=== PATIENT | female | born 1950 | race Caucasian/White ===

== ENCOUNTER 2017-10-14 00:07 | Inpatient (IN) ==
[2017-10-14] MEDS ORDERED: ACETAMINOPHEN 325 MG TABLET PO PRN (03:12)
[2017-10-14] MEDS ORDERED: MORPHINE 2 MG/1 ML SYRINGE IV PRN (03:12)
[2017-10-14] MEDS ORDERED: ONDANSETRON 4 MG/2 ML VIAL IV PRN (03:12)
[2017-10-14] MEDS ORDERED: ESTROPIPATE 0.75 MG TABLET PO PRN (03:27)
[2017-10-14] MEDS ORDERED: FUROSEMIDE 20 MG TABLET PO PRN (03:27)
[2017-10-14] MEDS ORDERED: ENOXAPARIN 40 MG/0.4 ML SYRINGE SUBCUT SCH (03:30)
[2017-10-14] MEDS: LEVOTHYROXINE 75 MCG TABLET PO SCH (05:29)
[2017-10-14] MEDS: SODIUM CHLORIDE 0.45% 1,000 ML IV SCH ×2 (05:29→11:53)
[2017-10-14] MEDS: ENOXAPARIN 80 MG/0.8 ML SYRINGE SUBCUT SCH ×2 (05:29→18:30)
[2017-10-14 06:37] LABS: Basophils % 0.6 % (0.0-0.8); Eosinophils % 0.6 % (0.00-10.9); Hematocrit 38.2 VOL% (35.7-47.0); Hemoglobin 12.8 GM/DL (12.0-16.0); Immature Granulocytes % 0.4 %; Immature Granulocytes Absolute 0.02 #; Lymphocytes # 2.4 10*3/uL (1.4-4.0); Lymphocytes % 49.8 % (21.3-54.2); Mean Corpuscular HGB Conc 33.5 GM/DL (32-36); Mean Corpuscular Hemoglobin 30 PG (27-34); Mean Corpuscular Volume 90.5 FL (87-102); Mean Platelet Volume 11.7 FL (9.6-12.0); Monocytes # 0.3 10*3/uL (0.11-0.8); Monocytes % 6.9 % (1.7-12.7); Neutrophils % 41.7 % (38.7-73.9); Platelet Count 149 T/CUMM (130-400); Red Blood Count 4.22 MC/CUMM (3.8-5.5); Red Cell Distribution Width 12.8 % (9.3-17.3); White Blood Count 4.9 T/CUMM (4-12)
[2017-10-14] MEDS ORDERED: NITROGLYCERIN SL 0.4 MG TABLET SL PRN (06:45)
[2017-10-14 07:05] LABS: CKMB % 4.9 %
[2017-10-14 07:14] LABS: Troponin I Only 3.48 NG/ML (0.00-0.045)
[2017-10-14 07:15] LABS: Albumin 3.3 G/DL (3.4-5.0); Bilirubin,Total 0.4 MG/DL (0.2-1.0); Calcium 8.6 MG/DL (8.5-10.1); Magnesium 2.2 MG/DL (1.8-2.4); Osmolality,Calculated 287.6 MOS/KG (273-304); Risk Ratio 2.58; Thyroid Stimulating Hormone 1.27 uIU/ml (0.358-3.74); Total Protein 6.3 G/DL (6.4-8.3)
[2017-10-14 07:29] LABS: Band Neutrophils 6 % (0-10); Eosinophils 1 % (0-10); Lymphocytes 47 % (20-55); Platelet Estimate Normal; Segmented Neutrophils 38 % (50-85); Total Cells Counted 100
[2017-10-14] MEDS ORDERED: MAGNESIUM SULF RIDER 2 GM in PREMIX 1 EACH IV PRN (08:49)
[2017-10-14] MEDS ORDERED: POTASSIUM CHLORIDE RIDER 10 MEQ in PREMIX 1 EACH IV PRN (08:49)
[2017-10-14 08:54] LABS: CKMB % 4.6 %; Troponin I Only 3.19 NG/ML (0.00-0.045)
[2017-10-14] MEDS ORDERED: ASPIRIN CHEW 81 MG TABLET PO ONE (09:20)
[2017-10-14] MEDS: amLODIPine 10 MG TABLET PO SCH (10:29)
[2017-10-14] MEDS: ASPIRIN 325 MG TABLET PO SCH (10:29)
[2017-10-14] MEDS: LOSARTAN/HCTZ 50-12.5 MG TABLET PO SCH (10:29)
[2017-10-14] MEDS: PANTOPRAZOLE 40 MG TABLET PO SCH (10:29)
[2017-10-14] MEDS: DOCUSATE SODIUM 100 MG CAPSULE PO SCH ×2 (10:30→22:40)
[2017-10-14 11:11] LABS: CKMB % 4.2 %; Troponin I Only 2.49 NG/ML (0.00-0.045)
[2017-10-14 11:14] LABS: Calcium 8.1 MG/DL (8.5-10.1); Osmolality,Calculated 287.6 MOS/KG (273-304); Potassium 3.1 MMOL/L (3.5-5.1)
[2017-10-14] MEDS: POTASSIUM CHLORIDE 20 MEQ TABLET PO PRN ×2 (15:36→17:27)
[2017-10-14] MEDS ORDERED: PRAVASTATIN 20 MG TABLET PO SCH (21:00)
[2017-10-15] MEDS: SODIUM CHLORIDE 0.45% 1,000 ML IV SCH ×3 (04:55→04:56)
[2017-10-15] MEDS: ENOXAPARIN 80 MG/0.8 ML SYRINGE SUBCUT SCH (04:56)
[2017-10-15] MEDS ORDERED: DIAZEPAM 5 MG TABLET PO ONE (06:00)
[2017-10-15] MEDS ORDERED: diphenhydrAMINE CAP 25 MG CAPSULE PO ONE (06:00)
[2017-10-15 06:06] LABS: Basophils % 0.2 % (0.0-0.8); Eosinophils # 0.1 10*3/uL (0.0-0.87); Eosinophils % 1.3 % (0.00-10.9); Hematocrit 40.8 VOL% (35.7-47.0); Hemoglobin 13.1 GM/DL (12.0-16.0); Immature Granulocytes % 0.2 %; Immature Granulocytes Absolute 0.01 #; Lymphocytes # 2.7 10*3/uL (1.4-4.0); Lymphocytes % 57.6 % (21.3-54.2); Mean Corpuscular HGB Conc 32.1 GM/DL (32-36); Mean Corpuscular Hemoglobin 30 PG (27-34); Mean Corpuscular Volume 92.3 FL (87-102); Mean Platelet Volume 12.1 FL (9.6-12.0); Monocytes # 0.3 10*3/uL (0.11-0.8); Monocytes % 6.4 % (1.7-12.7); Neutrophils # 1.6 10*3/uL (1.4-7.4); Neutrophils % 34.3 % (38.7-73.9); Platelet Count 140 T/CUMM (130-400); Red Blood Count 4.42 MC/CUMM (3.8-5.5); Red Cell Distribution Width 12.6 % (9.3-17.3); White Blood Count 4.7 T/CUMM (4-12)
[2017-10-15] MEDS: LEVOTHYROXINE 75 MCG TABLET PO SCH (06:34)
[2017-10-15 06:41] LABS: Band Neutrophils 1 % (0-10); Calcium 8.3 MG/DL (8.5-10.1); Eosinophils 1 % (0-10); Hypochromasia 1+; Lymphocytes 44 % (20-55); Magnesium 2.3 MG/DL (1.8-2.4); Osmolality,Calculated 286.7 MOS/KG (273-304); Platelet Estimate Adequate; Potassium 3.6 MMOL/L (3.5-5.1); Segmented Neutrophils 41 % (50-85); Total Cells Counted 100
[2017-10-15 06:47] LABS: Risk Ratio 2.71; VLDL CHOLESTEROL 20.6 MG/DL
[2017-10-15] MEDS: PANTOPRAZOLE 40 MG TABLET PO SCH (12:07)
[2017-10-15] MEDS: amLODIPine 10 MG TABLET PO SCH (12:08)
[2017-10-15] MEDS: LOSARTAN/HCTZ 50-12.5 MG TABLET PO SCH (12:08)
[2017-10-15] MEDS: ASPIRIN 325 MG TABLET PO SCH (12:08)
[2017-10-15] MEDS ORDERED: LIDOCAINE 1% 20 ML VIAL ONE (12:25)
[2017-10-15] MEDS ORDERED: MIDAZOLAM 2 MG/2 ML VIAL ONE (12:26)
[2017-10-15] MEDS ORDERED: fentaNYL 100 MCG/2 ML VIAL ONE (12:26)
[2017-10-15] MEDS ORDERED: ISOSORBIDE MONONITRATE 30 MG TABLET PO SCH (13:00)
[2017-10-15 18:04] VITALS: BP 101/60
== END 2017-10-15 17:48 | disposition home or self-care (01) | DRG 947 ==
LOC: SUATTDRO 02:00 → N.TELES 02:00
PROVIDERS: ADMIT Internal Medicine Nephrology; ATTEND Hospitalist
PROC: CLCCHCL (ICD-10-PCS; 2017-10-15 12:45)